=== PATIENT | male | born 1960 | race Caucasian/White ===

== ENCOUNTER 2023-12-12 15:02 | Emergency (ER) | payer BC, SELFPAY ==
[2023-12-12 15:03] VITALS: BP 175/79; PULSE 68; RESP 14; TEMP 36.6; O2SAT 98; BMI 33.0
--- NOTE | 2023-12-12 15:55 | EX.ED.DYSGE1 ---
HPI History of Present Illness Chief Complaint: Hypertension Informant: patient Narrative Narrative: This is a very pleasant 63-year-old male presenting to the emergency room with hypertension and intermittent lightheadedness/dizziness episodes. Patient states he has been treated for hypertension and sees his primary care physician for this. He states that a couple weeks ago he was in the office and they discussed his blood pressure medications. That time he was taking metoprolol 100 mg daily, and lisinopril/HCTZ 20/12.5 mg daily. He asked to have the HCTZ removed as he was having frequent urination both at night and during daytime. He states that that has improved. Beginning yesterday morning he has been having intermittent episodes of feeling off balance when he changes positions carefully getting out of bed in the morning. He denies any significant headache or vision changes. He notes normal strength in the arms and legs. He took his blood pressure today and it was in the 170/100 range. [facility] Medical History Hypothyroidism Hypothyroid Hypertension Allergy/AdvReac Type Severity Reaction Status Date / Time No Known Allergies Allergy Verified 12/12/23 15:04 Social History Smoking Status: Former smoker ROS ROS ED ROS Narrative Lightheadedness/dizziness Constitutional Constitutional ED: Denies chills, fever(s) or weight loss Eyes Eyes: Denies change in vision or diplopia ENT ENT ED: Denies ear pain, rhinorrhea or sore throat Cardiovascular Cardiovascular: Denies chest pain, orthopnea, palpitations or racing heartbeat Respiratory/Chest Respiratory/Chest: Denies cough, dyspnea or orthopnea Gastrointestinal Gastrointestinal: Denies abdominal pain, diarrhea, nausea or vomiting Genitourinary Genitourinary ED: Denies dysuria, hematuria or urinary frequency Musculoskeletal Musculoskeletal: Denies arthralgias or myalgias Integumentary Denies abscess or rash Neurologic Neurologic: Denies headache(s) or weakness Psychiatric Psychiatric: Denies anxiety, depression, suicidal ideation or suicidal thoughts Endocrine Endocrinology: Denies polydipsia, polyphagia or polyuria Allergic/Immunologic Allergic/Immunologic ED: Denies mouth swelling, tongue swelling or urticaria EXAM Physical Exam Const Vital Signs: 12/12/23 15:03 12/12/23 16:08 Temperature 98 F Temperature Source Temporal Pulse Rate 68 Respiratory Rate 14 Blood Pressure 175/79 H 166/76 H Blood Pressure Mean 111 106 Pulse Ox 98 Oxygen Delivery Method Room Air Positive well nourished and well developed General Appearance ED: well developed HEENT Reports normocephalic, head/scalp atraumatic and moist mucous membranes Eyes PERRL and EOMs intact bilaterally Neck no lymphadenopathy, supple and no JVD Resp normal respiratory effort and clear to auscultation bilaterally Cardio regular rate, regular rhythm and no murmurs GI normal to inspection, nondistended, normoactive bowel sounds and non-tender Palpation: soft Back/Spine no CVA tenderness and normal ROM Extremity normal to inspection General Extremety ED: Negative for edema General Extremity: Negative for edema Neuro oriented x3 and CN's II-XII intact bilaterally Sensorium / Orientation: alert Motor Exam: strength 5/5 throughout Psych mental status grossly normal Mood & Affect: Negative for depressed or tearful Skin no rashes or lesions noted and no wounds MDM MDM MDM Narrative Medical decision making narrative: Differential diagnosis includes but not limited to peripheral and central vertigo, hypertension, electrolyte disturbance, anemia, renal dysfunction. Patient was placed on the monitor. He appears in a sinus rhythm. White count 8.3 with a hemoglobin of 14.4. Platelet count of 285. BMP with a normal sodium and potassium and a creatinine that is normal at 0.97. Glucose 106. Patient received an extra 20 mg of lisinopril as well as clonidine. Blood pressure has trended down and is currently 145/74. I spoke with the patient regarding a variety of treatment options for him. Using shared decision making and the fact that he has enjoyed not being on a diuretic we are going to increase his lisinopril to 40 mg once a day. He will follow-up with his doctor in 1 week. History & Record Review Discussion w/independent historian: Patient Lab Data Attestation: I reviewed the patient's lab results. Labs: Laboratory Results - last 24 hr 12/12/23 16:03 WBC 8.3 RBC 4.93 Hgb 14.4 Hct 45.3 MCV 91.9 MCH 29.2 MCHC 31.8 L RDW Std Deviation 47.0 H RDW Coeff of Dilcia 14.0 Plt Count 285 MPV 10.2 Immature Gran % (Auto) 0.100 Neut % (Auto) 64.2 Lymph % (Auto) 21.2 [place] % (Auto) 8.1 Eos % (Auto) 5.8 H Baso % (Auto) 0.6 Absolute Neuts (auto) 5.3 Absolute Lymphs (auto) 1.75 Nucleated RBC % 0 Sodium 140 Potassium 3.8 Chloride 108 H Carbon Dioxide 26.0 Anion Gap 6 BUN 14 Creatinine 0.97 Estim Creat Clear Calc 102.87 Est GFR (MDRD) Af Amer 100 Est GFR (MDRD) Non-Af 83 BUN/Creatinine Ratio 14.4 Glucose 106 Calcium 9.2 Discharge Plan Triage Chief Complaint: Hypertension ED Provider: Edward Morocho Dx/Rx/DC Orders Primary Care Provider: Oscar Brown Referrals: Oscar Brown DO [Primary Care Provider] - Print Language: Estonian
[2023-12-12] MEDS: cloNIDine HCl 0.1 MG Tablet PO (16:02)
[2023-12-12 16:08] VITALS: BP 166/76
[2023-12-12 16:17] LABS: Absolute Lymphocyte Count 1.75 X10^3/uL (0.83-4.51); Absolute Neutrophil Count 5.3 X10^3/uL (2.0-7.7); Basophil# 0.05 X10^3/uL; Basophil% 0.6 % (0-1); Eosinophil# 0.48 X10^3/uL; Eosinophils% 5.8 % (0-5); Hematocrit 45.3 % (40-54); Hemoglobin 14.4 g/dL (13.0-16.5); Lymphocyte # 1.75 X10^3/ul (0.83-4.51); Lymphocyte % 21.2 % (19-41); Mean Corp Hgb Conc 31.8 g/dL (32-36); Mean Corpuscular Hgb 29.2 pg (27.0-32.0); Mean Corpuscular Volume 91.9 fL (80-94); Mean Platelet Vol. 10.2 fl (6.2-12.0); Monocyte# 0.67 X10^3/uL; Monocyte% 8.1 % (0-10); NRBC Flagged by Analyzer 0 % (0-5); Neutrophil % 64.2 % (47-70); Platelet Count 285 K/mm3 (150-450); Red Blood Count 4.93 M/mm3 (4.6-6.2); White Blood Count 8.3 K/mm3 (4.4-11.0)
[2023-12-12] MEDS: Lisinopril 20 MG Tablet PO (16:17)
[2023-12-12 16:30] LABS: Anion Gap 6 (5-15); BUN 14 mg/dL (7-18); BUN/Creat Ratio 14.4 RATIO (10-20); Calcium,Total 9.2 mg/dL (8.5-10.1); Chloride 108 mmol/L (98-107); Creatinine, Serum 0.97 mg/dL (0.70-1.30); EST Glomerular Filtration Rate 83 mL/min (>60); Est Glom Filt Rate - Afr Amer 100 mL/min (>60); Estimated Creatinine Clearance 102.87 ml/min; Glucose 106 mg/dL (74-106); Potassium 3.8 mmol/L (3.5-5.1); Sodium Level 140 mmol/L (136-145)
[2023-12-12 17:32] VITALS: BP 144/74; PULSE 82; RESP 16; TEMP 36.8; O2SAT 98
== END 2023-12-12 17:32 | disposition home or self-care (01) ==
PROVIDERS: Emergency Provider Emergency Medicine; PCP Family Medicine; Visit Provider Emergency Medicine
DX: I10 Essential (primary) hypertension (principal); Z87.891 Personal history of nicotine dependence; R42 Dizziness and giddiness; Z79.899 Other long term (current) drug therapy
CPT/HCPCS: 80048; 85025; 99284